=== PATIENT | male | born 1950 | race Caucasian/White ===

== ENCOUNTER 2020-03-24 03:02 | Emergency (ER) | payer OTHER ==
[~2020-03-24] VITALS: Ht 167.6 cm; Wt 90.7 kg
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
--- NOTE | 2020-03-24 05:01 | NUR ---
PT PROVIDED WITH OJ
--- NOTE | 2020-03-24 05:28 | NUR ---
Patient discharged to home in stable condition. Written and verbal after care instructions given. Patient verbalizes understanding of instruction. Pt called his to be picked up. vss.
[2020-03-24 06:16] VITALS: BP 146/95
== END 2020-03-24 06:17 | disposition home or self-care (01) ==
LOC: ER 03:02
DX: S09.8XXA Other specified injuries of head, initial encounter (principal); R51.9 Headache, unspecified; I10 Essential (primary) hypertension; E11.9 Type 2 diabetes mellitus without complications; Z95.1 Presence of aortocoronary bypass graft; V49.49XA Driver injured in collision with other motor vehicles in traffic accident, initial encounter; Y93.89 Activity, other specified; Y92.488 Other paved roadways as the place of occurrence of the external cause; Y99.8 Other external cause status
CPT/HCPCS: 70450-TC; 82962-TC

== ENCOUNTER 2024-04-14 16:55 | Inpatient (IN) | payer OTHER ==
[~2024-04-14] VITALS: Ht 165.1 cm; Wt 83.5 kg
[2024-04-14] VITALS (7 sets, daily range): BP systolic 96–123; BP diastolic 54–74; O2SAT 98
[2024-04-14 17:19] LABS: LYMPHOCYTES # (AUTO) 0.4 K/uL (0.8-4.8); LYMPHOCYTES % (AUTO) 1.9 % (20.0-44.0); MONOCYTES # (AUTO) 1.5 K/uL (0.1-1.30)
[2024-04-14 17:26] LABS: BASOPHILS % (AUTO) 0.2 % (0.0-2.0); HEMATOCRIT 52 % (39-51); HEMOGLOBIN 16.7 g/dL (13.5-17.5); MEAN CORPUSCULAR HEMOGLOBIN 29 PG (26.0-33.0); MEAN CORPUSCULAR HGB CONC 32 g/dl (31.0-36.0); MEAN CORPUSCULAR VOLUME 90 fL (80-96); MONOCYTES % (AUTO) 7.4 % (2.0-12.0); NEUTROPHILS # (AUTO) 18.2 K/uL (1.8-8.9); NEUTROPHILS % (AUTO) 90.5 % (43.0-81.0); PLATELET COUNT (AUTO) 308 K/uL (150-450); RED BLOOD CELL COUNT(AUTO) 5.79 MIL/uL (4.5-6.0); RED CELL DISTRIBUTION WIDTH 15.4 % (11.5-15.0); WHITE BLOOD COUNT (AUTO) 20.1 K/uL (4.3-11.0)
[2024-04-14] MEDS ORDERED: NOREPINEPHRINE 8MG/250ML RTU 250 ML IV ONE (17:27)
[2024-04-14] MEDS: ETOMIDATE 2 MG/ML VIAL IV ONE (17:30)
[2024-04-14] MEDS: ROCURONIUM BROMIDE 50 MG/5 ML IV ONE (17:30)
[2024-04-14] MEDS ORDERED: NOREPINEPHRINE 8 MG in IV D5W 242 ML IV PRN (17:30)
[2024-04-14] MEDS ORDERED: IV NS 0.9% 250 ML IV ONE (17:33)
[2024-04-14] MEDS ORDERED: IOHEXOL-350 100 ML VIAL IV ONE (17:33)
[2024-04-14 17:39] LABS: ALANINE AMINOTRANSFERASE 19 U/L (12-78); ALBUMIN 3.6 g/dL (3.4-5.0); ALKALINE PHOSPHATASE 111 U/L (46-116); ASPARTATE AMINOTRANSFERASE 17 U/L (15-37); BILIRUBIN,DIRECT 0.2 mg/dL (0.0-0.2); BILIRUBIN,TOTAL 0.7 mg/dL (0.2-1.0); CALCIUM, SERUM 9.2 mg/dL (8.5-10.1); CHLORIDE 90 mmol/L (98-107); CREATININE 2.9 mg/dL (0.6-1.3); POTASSIUM 5.1 mmol/L (3.5-5.1); SODIUM SERUM 132 mmol/L (136-145); TOTAL PROTEIN, SERUM 7.8 g/dL (6.4-8.2); UREA NITROGEN, BLOOD 42 mg/dL (7-18)
[2024-04-14 17:42] LABS: CARBON DIOXIDE 6 mmol/L (21-32); GLUCOSE 902 mg/dL (74-106)
[2024-04-14 17:55] LABS: LACTIC ACID 4.8 mmol/L (0.4-2.0)
[2024-04-14 17:59] LABS: INR 1.07 (0.91-1.10); PARTIAL THROMBOPLASTIN TIME 28.5 SEC (24.3-34.3); PROTHROMBIN TIME 11.3 SECS (9.2-11.1)
[2024-04-14 18:13] LABS: MAGNESIUM 2.4 mg/dL (1.8-2.4); PHOSPHORUS 7.7 mg/dL (2.5-4.9)
[2024-04-14] MEDS: VANCOMYCIN 1 GM in IV D5W 250 ML IV ONE (19:00)
[2024-04-14] MEDS: INSULIN REGULAR, HUMAN 100 UNITS in IV NS 0.9% 100 ML IV PRN (19:00)
[2024-04-14] MEDS: Sodium Bicarbonate 150 MEQ in IV D5W 1,000 ML IV STA (19:02)
[2024-04-14 19:52] LABS: MAGNESIUM 2.3 mg/dL (1.8-2.4); PHOSPHORUS 7.1 mg/dL (2.5-4.9)
[2024-04-14] MEDS: PIPERACILLIN /TAZOBACTAM 3.375 G in IV D5W 50 ML IV ONE (19:52)
[2024-04-14 20:34] LABS: APPEARANCE,URINE CLEAR (CLEAR); BILIRUBIN,URINE 1+ (NEGATIVE); BLOOD, URINE 2+ Ery/uL (NEGATIVE); COLOR,URINE YELLOW (YELLOW); KETONES,URINE 3+ mg/dL (NEGATIVE); LEUKOCYTE ESTERASE ,URINE NEGATIVE (NEGATIVE); NITRITE, URINE NEGATIVE (NEGATIVE); PH,URINE 5.5 (5.0-8.0); PROTEIN,URINE 2+ mg/dl (NEGATIVE); UGLUCOSE 3+ mg/dL (NEGATIVE); UROBILINOGEN,URINE 0.2 EU/dL (0.2)
[2024-04-14] MEDS: IV LR 1000 ML 1,000 ML BAG IV ONE (20:34)
[2024-04-14 20:55] LABS: ADD URINE CULTURE NO; BACTERIA,URINE Few /HPF (None Seen); SQUAMOUS EPITHELIAL CELL,UR None Seen /HPF (None Seen); WBC,URINE 0-2 /HPF (0-3)
[2024-04-14] MEDS ORDERED: PROPOFOL 100 ML ONE (20:57)
[2024-04-14] MEDS: PROPOFOL 100 ML IV PRN ×2 (21:11→22:30)
[2024-04-14] MEDS ORDERED: MAG HYDROX/AL HYDROX/SIMETH 30 ML UDC PO PRN (21:30)
[2024-04-14] MEDS ORDERED: ACETAMINOPHEN 325 MG TABLET PO PRN (21:30)
[2024-04-14] MEDS ORDERED: ONDANSETRON HCL/PF 4 MG/2 ML VIAL IVP PRN (21:30)
[2024-04-14 21:38] LABS: MAGNESIUM 2.3 mg/dL (1.8-2.4); PHOSPHORUS 5.2 mg/dL (2.5-4.9)
[2024-04-14 21:39] LABS: CALCIUM, SERUM 8.7 mg/dL (8.5-10.1); CREATININE 2.9 mg/dL (0.6-1.3); POTASSIUM 4.3 mmol/L (3.5-5.1)
[2024-04-14] MEDS ORDERED: CARV12.52 PO (21:49)
[2024-04-14] MEDS ORDERED: METF-440 PO (21:49)
[2024-04-14] MEDS ORDERED: EMPA25TA PO (21:49)
[2024-04-14] MEDS ORDERED: LISI20TA30 PO (21:49)
[2024-04-14] MEDS ORDERED: ATOR20TA PO (21:49)
[2024-04-14] MEDS ORDERED: CYAN-24 PO (21:49)
[2024-04-14] MEDS ORDERED: CALC500T63 PO (21:49)
[2024-04-14] MEDS ORDERED: LIRA0.6P2 SQ (21:49)
[2024-04-14] MEDS ORDERED: ASPI-1420 PO (21:49)
[2024-04-14] MEDS ORDERED: NPH,100V2 SQ (21:49)
[2024-04-14] MEDS ORDERED: CHOL100062 PO (21:49)
[2024-04-14] MEDS ORDERED: METF-442 PO (21:49)
[2024-04-14] MEDS: BLOOD SUGAR DIAGNOSTIC 1 EACH STRIP IN SCH (22:27)
[2024-04-14] MEDS: INSULIN REGULAR, HUMAN 100 UNIT in IV NS 0.9% 99 ML IV PRN (22:35)
[2024-04-14] MEDS: IV NS 0.9% 1,000 ML IV PRN (22:48)
[2024-04-14] MEDS: ENOXAPARIN SODIUM 30 MG/0.3 ML DISP.SYRIN SQ SCH (22:50)
[2024-04-15] VITALS (47 sets, daily range): BP systolic 94–170; BP diastolic 54–107; TEMP 98.8–101.4; O2SAT 97–98
[2024-04-15 00:54] LABS: CREATININE 2.9 mg/dL (0.6-1.3)
[2024-04-15] MEDS ORDERED: INSULIN REGULAR, HUMAN 100 UNIT/ML 10 ML VIAL ONE (02:02)
[2024-04-15] MEDS: PIPERACILLIN /TAZOBACTAM 2.255 G in IV D5W 50 ML IV ONE (02:52)
[2024-04-15] MEDS: PIPERCILLIN/TAZOBACTAM 2.25GM/D5W 50MLPB IV ONE (02:53)
[2024-04-15 04:38] LABS: BASOPHILS % (AUTO) 0.1 % (0.0-2.0); HEMATOCRIT 40 % (39-51); HEMOGLOBIN 13.7 g/dL (13.5-17.5); LYMPHOCYTES # (AUTO) 0.7 K/uL (0.8-4.8); LYMPHOCYTES % (AUTO) 4.2 % (20.0-44.0); MEAN CORPUSCULAR HEMOGLOBIN 29 PG (26.0-33.0); MEAN CORPUSCULAR HGB CONC 34 g/dl (31.0-36.0); MEAN CORPUSCULAR VOLUME 83 fL (80-96); MONOCYTES # (AUTO) 1.6 K/uL (0.1-1.30); MONOCYTES % (AUTO) 10.3 % (2.0-12.0); NEUTROPHILS # (AUTO) 13.5 K/uL (1.8-8.9); NEUTROPHILS % (AUTO) 85.4 % (43.0-81.0); PLATELET COUNT (AUTO) 219 K/uL (150-450); RED BLOOD CELL COUNT(AUTO) 4.81 MIL/uL (4.5-6.0); WHITE BLOOD COUNT (AUTO) 15.8 K/uL (4.3-11.0)
[2024-04-15 04:52] LABS: CALCIUM, SERUM 8.8 mg/dL (8.5-10.1); CREATININE 2.9 mg/dL (0.6-1.3); MAGNESIUM 1.8 mg/dL (1.8-2.4); POTASSIUM 3.5 mmol/L (3.5-5.1)
[2024-04-15 04:57] LABS: PHOSPHORUS 0.8 mg/dL (2.5-4.9)
[2024-04-15] MEDS: ACETAMINOPHEN 650 MG/SUPP.RECT RC ONE (05:44)
[2024-04-15 06:20] LABS: ABG BASE EXCESS -1.5 mmol/L (-2.0-3.0); ABG OXYGEN SATURATION 96.8 % (94.0-98.0); ABG PCO2 27.5 mmHg (35.0-48.0); ABG PH 7.489 (7.350-7.450); ABG PO2 84.8 mmHg (83.0-108.0); ABG TOTAL HEMOGLOBIN 14.4 G/dL (13.5-17.5); COHb 0.3 % (0.5-1.5); MetHb 0.2 % (0.0-1.5); O2Hb 96.3 % (94.0-97.0); PEEP,BG 0 cm H2O; SITE, ABG RIGHT RADIAL; VT, ABG 550 mL
[2024-04-15] MEDS: Sodium Phosphate 30 MMOL in IV NS 0.9% 250 ML IV SCH (07:00)
[2024-04-15 08:11] LABS: ABG BASE EXCESS -20.5 mmol/L (-2.0-3.0); ABG OXYGEN SATURATION 99.2 % (94.0-98.0); ABG PCO2 27.9 mmHg (35.0-48.0); ABG PH 7.083 (7.350-7.450); ABG PO2 361.8 mmHg (83.0-108.0); ABG TOTAL HEMOGLOBIN 15.1 G/dL (13.5-17.5); COHb 0.3 % (0.5-1.5); MetHb 0.6 % (0.0-1.5); O2Hb 98.3 % (94.0-97.0); SITE, ABG RIGHT RADIAL; VT, ABG 550 mL
[2024-04-15] MEDS ORDERED: CALC-1310 PO (09:26)
[2024-04-15 09:57] LABS: CALCIUM, SERUM 8.8 mg/dL (8.5-10.1); CREATININE 2.4 mg/dL (0.6-1.3); POTASSIUM 3.7 mmol/L (3.5-5.1)
[2024-04-15] MEDS ORDERED: DEXTROSE 50%-WATER 50 ML DISP.SYRIN IV PRN (11:00)
[2024-04-15] MEDS: ZOSYN IVPB 2.25 G in IV D5W 50ml IV SCH (12:05)
[2024-04-15] MEDS ORDERED: ETOMIDATE 2 MG/ML VIAL IV ONE (12:27)
[2024-04-15] MEDS: INSULIN GLARGINE, 100 UNIT/ML CARTRIDGE SQ SCH (12:51)
[2024-04-15] MEDS: INSULIN REGULAR, HUMAN 100 UNIT/ML 3 ML VIAL SQ PRN (12:51)
[2024-04-15] MEDS: BLOOD SUGAR DIAGNOSTIC 1 EACH STRIP IN SCH (12:54)
[2024-04-15] MEDS: hydrALAZINE HCL IV 20 MG VIAL IV PRN (15:35)
[2024-04-16] VITALS (37 sets, daily range): BP systolic 107–175; BP diastolic 57–94; TEMP 98.8–99.6; O2SAT 96–99
[2024-04-16 04:42] LABS: BASOPHILS % (AUTO) 0.2 % (0.0-2.0); HEMATOCRIT 35 % (39-51); HEMOGLOBIN 12.1 g/dL (13.5-17.5); LYMPHOCYTES % (AUTO) 8.2 % (20.0-44.0); MEAN CORPUSCULAR HEMOGLOBIN 28 PG (26.0-33.0); MEAN CORPUSCULAR HGB CONC 34 g/dl (31.0-36.0); MEAN CORPUSCULAR VOLUME 83 fL (80-96); MONOCYTES # (AUTO) 0.9 K/uL (0.1-1.30); MONOCYTES % (AUTO) 7.2 % (2.0-12.0); NEUTROPHILS # (AUTO) 10.3 K/uL (1.8-8.9); NEUTROPHILS % (AUTO) 84.4 % (43.0-81.0); PLATELET COUNT (AUTO) 156 K/uL (150-450); RED BLOOD CELL COUNT(AUTO) 4.27 MIL/uL (4.5-6.0); RED CELL DISTRIBUTION WIDTH 15.3 % (11.5-15.0); WHITE BLOOD COUNT (AUTO) 12.2 K/uL (4.3-11.0)
[2024-04-16 05:53] LABS: ALBUMIN 2.1 g/dL (3.4-5.0); BILIRUBIN,TOTAL 0.7 mg/dL (0.2-1.0); CALCIUM, SERUM 8.3 mg/dL (8.5-10.1); MAGNESIUM 1.9 mg/dL (1.8-2.4); PHOSPHORUS 3.4 mg/dL (2.5-4.9); POTASSIUM 3.2 mmol/L (3.5-5.1); TOTAL PROTEIN, SERUM 5.4 g/dL (6.4-8.2)
[2024-04-16] MEDS: VANCOMYCIN 1 GM in IV D5W 250ml IV SCH (06:39)
[2024-04-16] MEDS: IV 1/2NS 1000 ML 1,000 ML IV SCH (09:12)
[2024-04-16] MEDS: POTASSIUM CL. PREMIX PERIPHER. 50 ML IV SCH (09:26)
[2024-04-16] MEDS: INSULIN GLARGINE, 100 UNIT/ML CARTRIDGE SQ SCH (09:54)
[2024-04-16 10:23] LABS: ABG BASE EXCESS -5.8 mmol/L (-2.0-3.0); ABG OXYGEN SATURATION 96.2 % (94.0-98.0); ABG PCO2 27.5 mmHg (35.0-48.0); ABG PH 7.415 (7.350-7.450); ABG PO2 84.7 mmHg (83.0-108.0); ABG TOTAL HEMOGLOBIN 13.2 G/dL (13.5-17.5); COHb 0.3 % (0.5-1.5); O2Hb 95.9 % (94.0-97.0); PEEP,BG 15 cm H2O; SITE, ABG RIGHT RADIAL; VT, ABG 550 mL
[2024-04-16] MEDS: IV NS 0.9% 250 ML IV PRN (12:30)
[2024-04-16] MEDS: IV 1/2NS 1000 ML 1,000 ML IV PRN (12:53)
[2024-04-17] VITALS (24 sets, daily range): BP systolic 132–172; BP diastolic 28–113; TEMP 98.6–99.9; O2SAT 94–100
[2024-04-17 05:05] LABS: BASOPHILS % (AUTO) 0.3 % (0.0-2.0); EOSINOPHILS % (AUTO) 0.1 % (0.0-6.0); HEMATOCRIT 41 % (39-51); HEMOGLOBIN 13.7 g/dL (13.5-17.5); LYMPHOCYTES % (AUTO) 8.7 % (20.0-44.0); MEAN CORPUSCULAR HEMOGLOBIN 28 PG (26.0-33.0); MEAN CORPUSCULAR HGB CONC 33 g/dl (31.0-36.0); MEAN CORPUSCULAR VOLUME 85 fL (80-96); MONOCYTES # (AUTO) 0.7 K/uL (0.1-1.30); MONOCYTES % (AUTO) 6.3 % (2.0-12.0); NEUTROPHILS # (AUTO) 9.8 K/uL (1.8-8.9); NEUTROPHILS % (AUTO) 84.6 % (43.0-81.0); PLATELET COUNT (AUTO) 177 K/uL (150-450); RED BLOOD CELL COUNT(AUTO) 4.89 MIL/uL (4.5-6.0); RED CELL DISTRIBUTION WIDTH 15.6 % (11.5-15.0); WHITE BLOOD COUNT (AUTO) 11.6 K/uL (4.3-11.0)
[2024-04-17 05:13] LABS: CALCIUM, SERUM 8.6 mg/dL (8.5-10.1); CREATININE 1.4 mg/dL (0.6-1.3); MAGNESIUM 1.8 mg/dL (1.8-2.4); PHOSPHORUS 2.7 mg/dL (2.5-4.9); POTASSIUM 3.8 mmol/L (3.5-5.1)
[2024-04-17 10:58] LABS: ABG BASE EXCESS -9.1 mmol/L (-2.0-3.0); ABG OXYGEN SATURATION 97.5 % (94.0-98.0); ABG PCO2 24.1 mmHg (35.0-48.0); ABG PH 7.381 (7.350-7.450); ABG TOTAL HEMOGLOBIN 14.1 G/dL (13.5-17.5); COHb 0.5 % (0.5-1.5); MetHb 0.1 % (0.0-1.5); O2Hb 96.9 % (94.0-97.0); PEEP,BG 5 cm H2O
[2024-04-17] MEDS ORDERED: DC PROPOFOL WHEN EXTUBATED XX PRN (11:30)
[2024-04-17] MEDS: VANCOMYCIN 750 MG in IV D5W 250 ML IV SCH (17:08)
[2024-04-18] VITALS (20 sets, daily range): BP systolic 126–169; BP diastolic 76–141; TEMP 98.2–98.4; O2SAT 93–98
[2024-04-18 05:34] LABS: CALCIUM, SERUM 8.5 mg/dL (8.5-10.1); CREATININE 1.2 mg/dL (0.6-1.3); POTASSIUM 3.3 mmol/L (3.5-5.1)
[2024-04-18] MEDS: POTASSIUM CL. PREMIX PERIPHER. 50 ML IV SCH (09:29)
[2024-04-18 11:03] LABS: PTH, INTACT 145 pg/mL (15-65)
[2024-04-18] MEDS: ZOSYN IVPB 3.375 G in IV D5W 50ml IV SCH (12:06)
[2024-04-19 05:07] LABS: *SPE A/G RATIO 0.8 (0.7-1.7); *SPE ALBUMIN 2.1 g/dL (2.9-4.4); *SPE ALPHA-1-GLOBULIN 0.3 g/dL (0.0-0.4); *SPE ALPHA-2-GLOBULIN 0.9 g/dL (0.4-1.0); *SPE BETA GLOBULIN 0.8 g/dL (0.7-1.3); *SPE GLOBULIN, TOTAL 2.6 g/dL (2.2-3.9); *SPE M-SPIKE Not Observed g/dL (Not Observed); *SPE PROTEIN TOTAL 4.7 g/dL (6.0-8.5); *SPEGAMMA GLOBULIN 0.6 g/dL (0.4-1.8)
== END 2024-04-18 19:00 | disposition short-term general hospital (02) | DRG 871 ==
LOC: ER 16:55 → ICU 20:50
PROVIDERS: ADMIT Nurse Practitioner Acute Care; ATTEND Internal Medicine
PROC: 5A1945Z Respiratory Ventilation, 24-96 Consecutive Hours (ICD-10-PCS; principal; 2024-04-14)
PROC: 0BH17EZ Insertion of Endotracheal Airway into Trachea, Via Natural or Artificial Opening (ICD-10-PCS; 2024-04-14)
DX: A41.9 Sepsis, unspecified organism (principal); E11.01 Type 2 diabetes mellitus with hyperosmolarity with coma; E11.11 Type 2 diabetes mellitus with ketoacidosis with coma; G92.8 Other toxic encephalopathy; J96.01 Acute respiratory failure with hypoxia; J69.0 Pneumonitis due to inhalation of food and vomit; D68.69 Other thrombophilia; Z99.11 Dependence on respirator [ventilator] status; N17.9 Acute kidney failure, unspecified; E87.1 Hypo-osmolality and hyponatremia; D64.9 Anemia, unspecified; E78.5 Hyperlipidemia, unspecified; I25.10 Atherosclerotic heart disease of native coronary artery without angina pectoris; N40.0 Benign prostatic hyperplasia without lower urinary tract symptoms; Z79.4 Long term (current) use of insulin; Z79.84 Long term (current) use of oral hypoglycemic drugs; Z95.1 Presence of aortocoronary bypass graft; D72.829 Elevated white blood cell count, unspecified; N18.9 Chronic kidney disease, unspecified; I12.9 Hypertensive chronic kidney disease with stage 1 through stage 4 chronic kidney disease, or unspecified chronic kidney disease; E87.6 Hypokalemia; K52.9 Noninfective gastroenteritis and colitis, unspecified; I65.23 Occlusion and stenosis of bilateral carotid arteries; E86.9 Volume depletion, unspecified; M89.8X9 Other specified disorders of bone, unspecified site; R65.20 Severe sepsis without septic shock; E11.51 Type 2 diabetes mellitus with diabetic peripheral angiopathy without gangrene; E66.01 Morbid (severe) obesity due to excess calories; E86.0 Dehydration
CPT/HCPCS: 31720; 36415; 36600; 70450-TC; 70496-TC; 70498-TC; 71045-TC; 76770-TC; 80048-TC; 80053-TC; 80061-TC; 80076-TC; 80202-TC; 81001; 82550-TC; 82803-TC; 82947-TC; 82962-TC; 83605-TC; 83735-TC; 83970; 84100-TC; 84155; 84165; 85025-TC; 85730-TC; 86850-TC; 87040-TC; 87081-TC; 92526; 92611-TC; 94002-TC; 94003-TC; 94799-TC; 99082-TC; A4223; A9563; G0378; J0360; J1650; J1815; J2543; J2704; J3370; J3371; J3480; J3490; J7030; J7050; J7060; J7070; J7120; Q9967